=== PATIENT | male | born 1930 | race Caucasian/White ===

== ENCOUNTER 2017-10-12 14:33 | Inpatient (IN) ==
[2017-10-12] MEDS ORDERED: Sod Chloride 0.9% Inj 1,000 ML IV.SIG ONE ×2 (15:14→17:57)
[2017-10-12 15:40] LABS: Baso # (Auto) 0.1 th/mm3 (0.0-0.2); Baso % (Auto) 1.1 % (0.0-2.0); Eos % (Auto) 0.6 % (0.0-4.0); Hematocrit 36.5 % (39.0-51.0); Hemoglobin 12.1 gm/dL (13.0-17.0); Lymph # (Auto) 0.8 th/mm3 (1.0-4.8); Lymph % (Auto) 10.7 % (9.0-44.0); Mean Corpuscular HGB Conc 33.2 % (32.0-36.0); Mean Corpuscular Hemoglobin 30.2 pg (27.0-34.0); Mean Corpuscular Volume 90.9 fL (80.0-100.0); Mean Platelet Volume 10.5 fL (7.0-11.0); Mono # (Auto) 0.3 th/mm3 (0.0-0.9); Mono % (Auto) 4.4 % (0.0-8.0); Neut # (Auto) 6.3 th/mm3 (1.8-7.7); Neut % (Auto) 83.2 % (16.0-70.0); Platelet Count 112 th/mm3 (150-450); Red Blood Count 4.02 mil/mm3 (4.50-5.90); Red Cell Distribution Width 15.2 % (11.6-17.2); White Blood Count 7.5 th/mm3 (4.0-11.0)
[2017-10-12 15:44] LABS: Chloride 103 meq/L (98-107); Sodium 137 meq/L (136-145)
[2017-10-12 15:48] LABS: Albumin 2.9 g/dL (3.4-5.0); Anion Gap 9 meq/L (5-15); Blood Urea Nitrogen 22 mg/dL (7-18); Carbon Dioxide 25.4 meq/L (21.0-32.0); Glucose,Random 186 mg/dL (74-106)
[2017-10-12 15:49] LABS: Activated Partial Thrombo Time 27.6 sec (24.3-30.1); INR 1.4 Ratio; Prothrombin Time 14.5 sec (9.8-11.6)
--- NOTE | 2017-10-12 15:49 | ED ---
HPI General Chief complaint: Altered Mental Status Stated complaint: stroke like symptoms Time Seen by Provider: 10/12/17 15:11 History of Present Illness HPI narrative: 87-year-old male history of A. fib, hypertension here for evaluation of status for the last 3 days. at the bedside states he has not been acting himself recently, has generalized weakness, unable to get out or into the wheelchair as usual, he has been feeling warm to touch but she did not check his temperature, no nausea or vomiting, no focal deficits. He has history of stroke in the past and uses wheelchair to ambulate. Related Data Home Medications Medication Instructions Recorded Confirmed Calcium Citrate + D 1 tab PO DAILY 10/12/17 10/12/17 cholecalciferol (vitamin D3) 5,000 unit PO DAILY 10/12/17 10/12/17 [Vitamin D3] docusate sodium [Colace] 100 mg PO DAILY 10/12/17 10/12/17 doxazosin 2 mg PO DAILY 10/12/17 10/12/17 ferrous sulfate 325 mg PO DAILY 10/12/17 10/12/17 furosemide 1 - 2 tab PO DAILY 10/12/17 10/12/17 gabapentin 300 mg PO BID 10/12/17 10/12/17 ibuprofen 200 mg PO Q4-6H PRN 10/12/17 10/12/17 pantoprazole 40 mg PO BID 10/12/17 10/12/17 potassium bicarb-citric acid 25 meq PO DAILY 10/12/17 10/12/17 [Klor-Con/EF] thyroid (pork) [[place] Thyroid] 120 mg PO DAILY 10/12/17 10/12/17 warfarin 4 mg PO DAILY 10/12/17 10/12/17 Allergies Allergy/AdvReac Type Severity Reaction Status Date / Time metronidazole Allergy Mild Rash Verified 10/12/17 21:38 Review of Systems ROS: all other systems reviewed are negative [facility] Medical History Medical History CVA (cerebral vascular accident) (Acute) DVT (deep venous thrombosis) (Acute) Gastro-esophageal reflux (Acute) History of radiation therapy (Acute) Prostate cancer (Acute) Pulmonary emboli (Acute) Skin cancer (Acute) Surgical History Surgical History History of right hip replacement (Acute) Social History Social History Substance History: No History of Abuse Second Hand Smoke Exposure: No Smoking Status: Never smoker How Often Do You Have a Drink Containing Alcohol: Never Recent Travel in [facility] within the Last 8 Weeks: No Recent Out of Country Travel within the Last 8 Weeks: No Immunization History Tetanus Immunization: <5 Years Hx Influenza Vaccine This Season: No Exam Narrative Exam Narrative: GENERAL: Alert oriented 3 no acute distress. SKIN: Focused skin assessment warm/dry. HEAD: Atraumatic. Normocephalic. EYES: Pupils equal and round. No scleral icterus. No injection or drainage. ENT: No nasal bleeding or discharge. Mucous membranes pink and moist. NECK: Trachea midline. No JVD. CARDIOVASCULAR: Regular rate and rhythm. No murmur appreciated. RESPIRATORY: No accessory muscle use. Clear to auscultation. Breath sounds equal bilaterally. GASTROINTESTINAL: Abdomen soft, non-tender, nondistended. Hepatic and splenic margins not palpable. MUSCULOSKELETAL: No obvious deformities. No clubbing. No cyanosis. No edema. NEUROLOGICAL: Awake and alert. No obvious cranial nerve deficits. Motor grossly within normal limits. Normal speech. PSYCHIATRIC: Appropriate mood and affect; insight and judgment normal. Course Initial Documented Vital Signs Temperature 101.4 F H 10/12/17 14:37 Pulse Rate 106 H 10/12/17 14:37 Blood Pressure 142/82 H 10/12/17 14:37 Pulse Oximetry 94 L 10/12/17 14:37 Last Documented Vital Signs Temperature 98.6 F 10/14/17 00:00 Pulse Rate 90 10/14/17 06:00 Respiratory Rate 17 10/14/17 06:00 Blood Pressure 139/88 10/14/17 06:00 Pulse Oximetry 95 10/14/17 06:00 Medical Decision Making [facility] Narrative Medical decision making narrative: 87-year-old male here for evaluation altered mental status. When arrived at the ER, patient was tachycardic,mild temperature. Urine is positive for a urine infection, low platelets. Lactic acid is 2. I believe the patient has urosepsis with concern for early DIC given the low platelets. Patient received 2L IV fluids here in the ER and Zosyn. Patient will be admitted to ICU for further management. I spoke with PA of Dr. palacios who accepted the patient. Lab Data Result diagrams: 10/13/17 03:55 10/13/17 03:55 Lab Results 10/12/17 10/12/17 10/12/17 Range/Units 15:15 15:15 15:15 CBC w Diff Slide review pending WBC 7.5 (4.0-11.0) th/mm3 RBC 4.02 L (4.50-5.90) mil/mm3 Hgb 12.1 L (13.0-17.0) gm/dL Hct 36.5 L (39.0-51.0) % MCV 90.9 (80.0-100.0) fL MCH 30.2 (27.0-34.0) pg MCHC 33.2 (32.0-36.0) % RDW 15.2 (11.6-17.2) % Plt Count 112 L (150-450) th/mm3 MPV 10.5 (7.0-11.0) fL Neut % (Auto) 83.2 H (16.0-70.0) % Lymph % (Auto) 10.7 (9.0-44.0) % [place] % (Auto) 4.4 (0.0-8.0) % Eos % (Auto) 0.6 (0.0-4.0) % Baso % (Auto) 1.1 (0.0-2.0) % Neut # (Auto) 6.3 (1.8-7.7) th/mm3 Lymph # (Auto) 0.8 L (1.0-4.8) th/mm3 [place] # (Auto) 0.3 (0.0-0.9) th/mm3 Eos # (Auto) 0.0 (0.0-0.4) th/mm3 Baso # (Auto) 0.1 (0.0-0.2) th/mm3 WBC Differential . Diff Scan Auto diff confirmed Differential Comment . Platelet Estimate Low L (Normal) Platelet Morphology Normal (Normal) RBC Morphology Normal (Normal) PT 14.5 H (9.8-11.6) sec INR 1.4 Ratio APTT 27.6 (24.3-30.1) sec Sodium 137 (136-145) meq/L Potassium 4.0 (3.5-5.1) meq/L Chloride 103 (98-107) meq/L Carbon Dioxide 25.4 (21.0-32.0) meq/L Anion Gap 9 (5-15) meq/L BUN 22 H (7-18) mg/dL Creatinine 1.20 (0.60-1.30) mg/dL Estimated GFR 57 L (>89) mL/min Random Glucose 186 H (74-106) mg/dL Lactic Acid (0.4-2.0) mmol/L Calcium 8.0 L (8.5-10.1) mg/dL Total Bilirubin 1.5 H (0.2-1.0) mg/dL AST 19 (15-37) U/L ALT 20 (12-78) U/L Alkaline Phosphatase 52 (45-117) U/L Ammonia (11-32) mcmol/L Total Creatine Kinase 85 (39-308) U/L Troponin I 0.05 (0.02-0.05) ng/mL Total Protein 6.9 (6.4-8.2) g/dL Albumin 2.9 L (3.4-5.0) g/dL TSH 0.034 L (0.358-3.740) uIU/mL Urine Color (Yellw/Straw) Urine Clarity (Clear) Urine pH (5.0-8.5) Ur Specific [place] (1.002-1.035) Urine Protein (Neg-Trace) mg/dL Urine Glucose (UA) (Negative) mg/dL Urine Ketones (Negative) mg/dL Urine Occult Blood (Negative) Urine Nitrate (Negative) Urine Bilirubin (Negative) Urine Urobilinogen (Less than 2) mg/dL Ur Leukocyte Esterase (Negative) Urine RBC (0-3) /hpf Urine WBC (0-5) /hpf Urine Bacteria (None) /hpf Micro UA Comment Urine Culture Comments Nasal Screen MRSA (PCR) (Negative) 10/12/17 10/12/17 10/12/17 Range/Units 15:50 15:50 16:15 CBC w Diff WBC (4.0-11.0) th/mm3 RBC (4.50-5.90) mil/mm3 Hgb (13.0-17.0) gm/dL Hct (39.0-51.0) % MCV (80.0-100.0) fL MCH (27.0-34.0) pg MCHC (32.0-36.0) % RDW (11.6-17.2) % Plt Count (150-450) th/mm3 MPV (7.0-11.0) fL Neut % (Auto) (16.0-70.0) % Lymph % (Auto) (9.0-44.0) % [place] % (Auto) (0.0-8.0) % Eos % (Auto) (0.0-4.0) % Baso % (Auto) (0.0-2.0) % Neut # (Auto) (1.8-7.7) th/mm3 Lymph # (Auto) (1.0-4.8) th/mm3 [place] # (Auto) (0.0-0.9) th/mm3 Eos # (Auto) (0.0-0.4) th/mm3 Baso # (Auto) (0.0-0.2) th/mm3 WBC Differential Diff Scan Differential Comment Platelet Estimate (Normal) Platelet Morphology (Normal) RBC Morphology (Normal) PT (9.8-11.6) sec INR Ratio APTT (24.3-30.1) sec Sodium (136-145) meq/L Potassium (3.5-5.1) meq/L Chloride (98-107) meq/L Carbon Dioxide (21.0-32.0) meq/L Anion Gap (5-15) meq/L BUN (7-18) mg/dL Creatinine (0.60-1.30) mg/dL Estimated GFR (>89) mL/min Random Glucose (74-106) mg/dL Lactic Acid 2.0 (0.4-2.0) mmol/L Calcium (8.5-10.1) mg/dL Total Bilirubin (0.2-1.0) mg/dL AST (15-37) U/L ALT (12-78) U/L Alkaline Phosphatase (45-117) U/L Ammonia 34 H (11-32) mcmol/L Total Creatine Kinase (39-308) U/L Troponin I (0.02-0.05) ng/mL Total Protein (6.4-8.2) g/dL Albumin (3.4-5.0) g/dL TSH (0.358-3.740) uIU/mL Urine Color Yellow (Yellw/Straw) Urine Clarity Turbid H (Clear) Urine pH 7.0 (5.0-8.5) Ur Specific [place] 1.015 (1.002-1.035) Urine Protein 30 H (Neg-Trace) mg/dL Urine Glucose (UA) Negative (Negative) mg/dL Urine Ketones Negative (Negative) mg/dL Urine Occult Blood Moderate H (Negative) Urine Nitrate Positive H (Negative) Urine Bilirubin Negative (Negative) Urine Urobilinogen 1.0 (Less than 2) mg/dL Ur Leukocyte Esterase Large H (Negative) Urine RBC 0-3 (0-3) /hpf Urine WBC Innumerable H (0-5) /hpf Urine Bacteria Many H (None) /hpf Micro UA Comment Culture indicated Urine Culture Comments Culture indicated Nasal Screen MRSA (PCR) (Negative) 10/13/17 10/13/17 10/13/17 Range/Units 03:55 03:55 09:20 CBC w Diff Auto diff final WBC 7.1 (4.0-11.0) th/mm3 RBC 4.04 L (4.50-5.90) mil/mm3 Hgb 12.5 L (13.0-17.0) gm/dL Hct 37.6 L (39.0-51.0) % MCV 93.0 (80.0-100.0) fL MCH 31.0 (27.0-34.0) pg MCHC 33.4 (32.0-36.0) % RDW 15.4 (11.6-17.2) % Plt Count 97 L (150-450) th/mm3 MPV 9.8 (7.0-11.0) fL Neut % (Auto) 65.4 (16.0-70.0) % Lymph % (Auto) 24.8 (9.0-44.0) % [place] % (Auto) 4.7 (0.0-8.0) % Eos % (Auto) 2.6 (0.0-4.0) % Baso % (Auto) 2.5 H (0.0-2.0) % Neut # (Auto) 4.7 (1.8-7.7) th/mm3 Lymph # (Auto) 1.7 (1.0-4.8) th/mm3 [place] # (Auto) 0.3 (0.0-0.9) th/mm3 Eos # (Auto) 0.2 (0.0-0.4) th/mm3 Baso # (Auto) 0.2 (0.0-0.2) th/mm3 WBC Differential . Diff Scan Differential Comment . Platelet Estimate (Normal) Platelet Morphology (Normal) RBC Morphology (Normal) PT (9.8-11.6) sec INR Ratio APTT (24.3-30.1) sec Sodium 139 (136-145) meq/L Potassium 3.9 (3.5-5.1) meq/L Chloride 105 (98-107) meq/L Carbon Dioxide 27.7 (21.0-32.0) meq/L Anion Gap 6 (5-15) meq/L BUN 23 H (7-18) mg/dL Creatinine 1.20 (0.60-1.30) mg/dL Estimated GFR 57 L (>89) mL/min Random Glucose 123 H (74-106) mg/dL Lactic Acid (0.4-2.0) mmol/L Calcium 7.8 L (8.5-10.1) mg/dL Total Bilirubin 1.3 H (0.2-1.0) mg/dL AST 17 (15-37) U/L ALT 20 (12-78) U/L Alkaline Phosphatase 49 (45-117) U/L Ammonia (11-32) mcmol/L Total Creatine Kinase (39-308) U/L Troponin I (0.02-0.05) ng/mL Total Protein 6.7 (6.4-8.2) g/dL Albumin 2.9 L (3.4-5.0) g/dL TSH (0.358-3.740) uIU/mL Urine Color (Yellw/Straw) Urine Clarity (Clear) Urine pH (5.0-8.5) Ur Specific [place] (1.002-1.035) Urine Protein (Neg-Trace) mg/dL Urine Glucose (UA) (Negative) mg/dL Urine Ketones (Negative) mg/dL Urine Occult Blood (Negative) Urine Nitrate (Negative) Urine Bilirubin (Negative) Urine Urobilinogen (Less than 2) mg/dL Ur Leukocyte Esterase (Negative) Urine RBC (0-3) /hpf Urine WBC (0-5) /hpf Urine Bacteria (None) /hpf Micro UA Comment Urine Culture Comments Nasal Screen MRSA (PCR) Mrsa detected (Negative) Imaging Data Radiologist's impression: Chest X-Ray 10/12/17 15:14 CONCLUSION: No consolidation or effusion. No pneumothorax. Discharge Plan Discharge Disposition Patient Disposition: 30 Still Patient Discharge Condition Condition: Stable Discharge Details Diagnosis: Altered mental status, UTI (urinary tract infection) Physicians Team ED Provider: Leonel Terrell Primary Care Provider: Romulo Ge Attending Provider: Romulo Ge Other Providers: Dheeraj Loomis Discharge Interventions Interventions: ED Discharge Assessment Last Done: 10/13/17 07:32 Status ED Status: Left Department Discharge Information Discharge Date/Time: 10/13/17 07:50
[2017-10-12 15:51] LABS: Alanine Aminotransferase 20 U/L (12-78); Aspartate Aminotransferase 19 U/L (15-37); Glomerular Filtration Rate 57 mL/min (>89)
[2017-10-12 15:52] LABS: Total Protein 6.9 g/dL (6.4-8.2)
[2017-10-12 15:54] LABS: Alkaline Phosphatase 52 U/L (45-117)
[2017-10-12 15:56] LABS: Troponin I 0.05 ng/mL (0.02-0.05)
[2017-10-12 16:02] LABS: Thyroid Stimulating Hormone 0.034 uIU/mL (0.358-3.740)
[2017-10-12 16:04] LABS: Creatine Kinase 85 U/L (39-308)
[2017-10-12 16:07] LABS: Platelet Morphology Normal (Normal); RBC Morphology Normal (Normal)
[2017-10-12 16:23] LABS: Bilirubin,Urine Negative (Negative); Clarity,Urine Turbid (Clear); Color,Urine Yellow (Yellw/Straw); Glucose,Urine (UA) Negative (Negative); Leukocyte Esterase,Urine Large (Negative); Nitrite,Urine Positive (Negative); Specific Gravity,Urine 1.015 (1.002-1.035)
[2017-10-12 16:30] LABS: Bacteria,Urine Many /hpf; RBC,Urine 0-3 /hpf (0-3); WBC,Urine Innumerable /hpf (0-5)
--- NOTE | 2017-10-12 16:33 | XR ---
EXAM DATE: 10/12/2017 3:53 PM EDT AGE/SEX: 87 years / Male INDICATIONS: Cough. CLINICAL DATA: This is the patient's initial encounter. Patient reports that signs and symptoms have been present for 2 days and indicates a pain score of Nonresponsive. MEDICAL/SURGICAL HISTORY: Non-responsive. Non-responsive. COMPARISON: [facility] – [place], 06/10/[place]. . FINDINGS: There is scattered parenchymal scarring in the lungs. No effusion or pneumothorax. Tortuous aorta. He art size mildly enlarged. No pneumothorax. CONCLUSION: No consolidation or effusion. No pneumothorax. Electronically signed by: Yariel Barlow MD 10/12/2017 4:31 PM EDT
[2017-10-12] MEDS ORDERED: Piperacil/Tazo 3.375 GM Premix 50 ML IV.SIG ONE (16:43)
[2017-10-12] MEDS ORDERED: Acetaminophen 500 MG Tablet PO STA (16:44)
[2017-10-12] MEDS ORDERED: Enoxaparin Inj 40 MG/0.4 ML Syringe SQ SCH (18:00)
[2017-10-12] MEDS: Temazepam 15 MG Capsule PO PRN ×2 (23:45→23:47)
[2017-10-13] MEDS ORDERED: Chlorhexidine Gluconate 2% 1 Pack (2 Cloths) TOPICAL PRN (04:00)
[2017-10-13 04:06] LABS: Baso # (Auto) 0.2 th/mm3 (0.0-0.2); Baso % (Auto) 2.5 % (0.0-2.0); Eos # (Auto) 0.2 th/mm3 (0.0-0.4); Eos % (Auto) 2.6 % (0.0-4.0); Hematocrit 37.6 % (39.0-51.0); Hemoglobin 12.5 gm/dL (13.0-17.0); Lymph # (Auto) 1.7 th/mm3 (1.0-4.8); Lymph % (Auto) 24.8 % (9.0-44.0); Mean Corpuscular HGB Conc 33.4 % (32.0-36.0); Mean Platelet Volume 9.8 fL (7.0-11.0); Mono # (Auto) 0.3 th/mm3 (0.0-0.9); Mono % (Auto) 4.7 % (0.0-8.0); Neut # (Auto) 4.7 th/mm3 (1.8-7.7); Neut % (Auto) 65.4 % (16.0-70.0); Platelet Count 97 th/mm3 (150-450); Red Blood Count 4.04 mil/mm3 (4.50-5.90); Red Cell Distribution Width 15.4 % (11.6-17.2); White Blood Count 7.1 th/mm3 (4.0-11.0)
[2017-10-13 04:09] LABS: Chloride 105 meq/L (98-107); Potassium 3.9 meq/L (3.5-5.1); Sodium 139 meq/L (136-145)
[2017-10-13 04:12] LABS: Albumin 2.9 g/dL (3.4-5.0); Anion Gap 6 meq/L (5-15); Blood Urea Nitrogen 23 mg/dL (7-18); Calcium 7.8 mg/dL (8.5-10.1); Carbon Dioxide 27.7 meq/L (21.0-32.0); Glucose,Random 123 mg/dL (74-106)
[2017-10-13 04:15] LABS: Alanine Aminotransferase 20 U/L (12-78); Aspartate Aminotransferase 17 U/L (15-37)
[2017-10-13 04:16] LABS: Glomerular Filtration Rate 57 mL/min (>89)
[2017-10-13 04:17] LABS: Total Protein 6.7 g/dL (6.4-8.2)
[2017-10-13 04:18] LABS: Alkaline Phosphatase 49 U/L (45-117)
[2017-10-13] MEDS: Piperacil/Tazo 3.375 GM Premix 50 ML IV.SIG SCH ×2 (05:45→17:52)
--- NOTE | 2017-10-13 07:41 | MB ---
cc: Jeannie Gannon MD DATE: 10/13/2017 REASON FOR CONSULTATION: ICU management. REFERRING PHYSICIAN: Dr. Ge HISTORY OF PRESENT ILLNESS: The patient is an 87-year-old male with a past medical history of hypertension, atrial fibrillation, CVA, prostate cancer, history of pulmonary embolism, who presented to [facility] ED with his for generalized weakness. Unable to get out of his wheelchair as usual. In addition, the patient had a subjective fever. Most of the history was obtained from reviewing the medical records. The patient is a poor historian and he answers no to every question asked. He denies any chest pain, shortness of breath, cough or any constitutional symptoms. In addition, he denies any nausea, vomiting or abdominal pain. On arrival to the ED, he had a temperature of 101.4 and his laboratory data showed a creatinine of 1.2 and urinalysis was grossly positive for nitrate, leukocyte esterase, innumerable WBC. In the ED, the patient was given Zosyn and 2 liter boluses of normal saline. When seen, he is awake, alert, lying in bed, in no acute respiratory distress. The patient is on room air oxygen. His current blood pressure is 144/81 with a pulse of 92 and saturation 96% on room air. PAST MEDICAL HISTORY: Significant for CVA, GERD, prostate cancer, skin cancer, thyroid disease, history of pulmonary embolus and deep venous thrombosis. PAST SURGICAL HISTORY: Previous right hip replacement. SOCIAL HISTORY: Nonsmoker, nondrinker. ALLERGIES: FLAGYL. FAMILY HISTORY: Noncontributory to present illness. MEDICATIONS AT HOME: Include: 1. Coumadin. 2. [place] Thyroid. 3. Doxazosin. 4. Gabapentin. 5. Lasix. 6. Ferrous sulfate. 8. Protonix. 9. Calcium citrate with vitamin D. REVIEW OF SYSTEMS: As per HPI. The rest of the review of systems is limited as the patient is a poor historian. PHYSICAL EXAM: An 87-year-old male lying in bed, in no acute respiratory distress. VITAL SIGNS: Temperature 98.3, T-max 101.4, pulse of 88, blood pressure 144/81, saturation 96% on room air. HEENT: Atraumatic, normocephalic. Pupils are equal, round, reactive to light and accommodation. Extraocular muscles intact. Conjunctivae pink. Nonicteric sclerae. Oral mucosa within normal. NECK: Supple. No JVD, adenopathy or thyromegaly. Trachea in the midline. CARDIOVASCULAR: Regular rate and rhythm. Normal S1, S2. No murmurs, rubs or gallops. PULMONARY: Bilateral equal air entry. No rales or wheezing. ABDOMEN: Soft, nontender, no distention, positive bowel sounds. EXTREMITIES: No cyanosis, clubbing or edema. NEUROLOGIC: No focal sensory deficit. LABORATORY DATA: WBC 7.1, hemoglobin 12.5, hematocrit 37, platelet count of 97. Sodium 139, potassium 3.9, chloride 105, CO2 27, BUN 23, creatinine 1.2, glucose of 123. Urinalysis positive for nitrate, large leukocyte esterase, innumerable WBC. INR 1.4. PT 14.5, PTT 27.6. EKG showed atrial fibrillation with a rate of 105 beats per minute. IMPRESSION: 1. Urinary tract infection. 2. Mild acute kidney injury. 3. Atrial fibrillation. 4. Hypertension. 5. Anemia and thrombocytopenia. 6. History of cerebrovascular accident. 7. History of thyroid disease. 8. History of prostate cancer. 9. History of pulmonary embolism and deep venous thrombosis. RECOMMENDATIONS: 1. Monitor neuro status closely and avoid any sedatives. 2. Oxygen p.r.n. to maintain sats above 92%. 3. Bronchodilators on a p.r.n. basis. 4. Monitor heart rate and blood pressure closely and maintain MAP greater than 65 mmHg. The patient was given 2 liters boluses of normal saline in the ED. His lactic acid level measured at 2.0. 5. Monitor renal function, I's and O's and avoid nephrotoxins. Electrolyte replacement per protocol. 6. The patient was started on p.o. cardiac diet and is on Protonix 40 mg b.i.d. for gastrointestinal prophylaxis an underlying history of gastroesophageal reflux disease. 7. Continue with antibiotics. He was started on Zosyn. Monitor for signs of infection, which include fever and WBC. Followup on blood and urine culture. 8. Monitor CBC and coags as the patient is on Coumadin with an INR of 1.4 on arrival. 9. Continue with ferrous sulfate 325 mg daily. 10. Sliding scale insulin if needed for glycemic control, GI and deep venous thrombosis prophylaxis per primary team. 11. The patient appears hemodynamically stable, normotensive and on room air oxygen. We will sign off. Please call with any questions. MD ANTWON Ely , 07:17 AM , 07:27 AM
[2017-10-13] MEDS ORDERED: Thyroid 60 MG Tablet PO SCH (09:00)
[2017-10-13] MEDS: Gabapentin 300 MG Capsule PO SCH ×2 (09:56→20:15)
[2017-10-13] MEDS: Calcium/Vitamin D 250/125 MG Tablet PO SCH (09:57)
[2017-10-13] MEDS: Ferrous Sulfate 325 MG Tablet PO SCH (09:57)
[2017-10-13] MEDS: Docusate Sodium 100 MG Capsule PO SCH (10:02)
[2017-10-13] MEDS: Potassium Bicarbonate 25 MEQ Effervescent Tablet PO SCH (10:03)
[2017-10-13] MEDS ORDERED: Thyroid 15 MG Tablet PO ONE (10:15)
[2017-10-13] MEDS: Chlorhexidine Gluconate 2% 1 Pack (2 Cloths) TOPICAL SCH (20:16)
--- NOTE | 2017-10-13 22:38 | ECG ---
Date Performed: 10/12/2017 Time Performed: 14:44:54 PTAGE: 87 years EKG: ATRIAL FIBRILLATION WITH RAPID VENTRICULAR RESPONSE RIGHT BUNDLE BRANCH BLOCK LEFT ANTERIOR FASCICULAR BLOCK POSSIBLE ANTERIOR MYOCARDIAL INFARCTION ABNORMAL ECG PREVIOUS TRACING : 06/10/2015 18.56 Compared to previous tracing, ATRIAL FIBRILLATION IS NEW DOCTOR: Shad Jara Interpretating Date/Time 10/13/2017 22:37:25
[2017-10-14] MEDS: Chlorhexidine Gluconate 2% 1 Pack (2 Cloths) TOPICAL SCH (06:19)
[2017-10-14] MEDS: Piperacil/Tazo 3.375 GM Premix 50 ML IV.SIG SCH ×2 (06:24→17:45)
[2017-10-14] MEDS: Thyroid 60 MG Tablet PO SCH (08:27)
[2017-10-14] MEDS: Docusate Sodium 100 MG Capsule PO SCH (08:27)
[2017-10-14] MEDS: Ferrous Sulfate 325 MG Tablet PO SCH (08:28)
[2017-10-14] MEDS: Gabapentin 300 MG Capsule PO SCH ×2 (08:28→21:05)
[2017-10-14] MEDS: Calcium/Vitamin D 250/125 MG Tablet PO SCH (08:28)
[2017-10-14] MEDS: Potassium Bicarbonate 25 MEQ Effervescent Tablet PO SCH (08:29)
--- NOTE | 2017-10-14 09:45 | P.HPFP ---
History of Present Illness Service: family medicine Primary Care Physician: Romulo Ge DO History of Present Illness: Late entry, seen on 10/13/17 The patient is an 87-year-old male with a past medical history of hypertension, atrial fibrillation, CVA, prostate cancer, history of pulmonary embolism, came to ED, with temperature of 101.4 and his laboratory data showed a creatinine of 1.2 and urinalysis was grossly positive for nitrate, leukocyte esterase, innumerable WBC. In the ED, the patient was given Zosyn and 2 liter boluses of normal saline. - Diagnosis (1) UTI (urinary tract infection) (2) Sepsis (3) Afib (4) HTN (hypertension) (5) GERD (gastroesophageal reflux disease) Inpatient Certification: I certify that the inpatient services were ordered in accordance with Medicare regulations governing the order. This includes certification that hospital inpatient services are reasonable and necessary and in the case of services not specified as inpatient-only under 42 CFR 419.22(n), that they are appropriately provided as inpatient services in accordance to with the 2-midnight benchmark under 43 CFR 412.3(e) Estimated Total Length of Stay (Days): 3 Plans for Post Hospital Care: Not yet determined Review of Systems unobtainable due to mental status PMFSH - History History Provided By: Patient, Significant Other - Medical History Medical History: Medical History (Last Updated 10/12/17 @ 14:56 by Marivel Garnica RN) CVA (cerebral vascular accident) DVT (deep venous thrombosis) Gastro-esophageal reflux History of radiation therapy Prostate cancer Pulmonary emboli Skin cancer - Surgical History Surgical History: Surgical History (Last Updated 10/12/17 @ 14:57 by Marivel Garnica RN) History of right hip replacement - Tobacco History Second Hand Smoke Exposure: No Tobacco Use In Past 30 Days: No Smoking Status: Never smoker - Alcohol History How Often Do You Have a Drink Containing Alcohol: Never - Substance Use History Substance History: No History of Abuse - Travel History Recent Travel in the [place] Within the Last 8 Weeks: No Recent Travel Out of the Country Within the Last 8 Weeks: No - Immunization History Tetanus Immunization: <5 Years Hx Influenza Vaccine This Season: No Medications and Allergies Active Medications: Active Medications Calcium/Vitamin D (Oscal With D 250/125 Mg) 1 tab PO DAILY [facility] Last Admin: 10/14/17 08:28 Dose: 1 tab Chlorhexidine Gluconate (Chlorhexidine 2% Cloth) 3 pack TOPICAL DAILY@0400 [facility] Stop: 10/18/17 03:59 Last Admin: 10/14/17 06:19 Dose: 3 pack Chlorhexidine Gluconate (Chlorhexidine 2% Cloth) 3 pack TOPICAL DAILY@0400 PRN PRN Reason: Extra cloth needed Stop: 10/18/17 03:59 Docusate Sodium (Colace) 100 mg PO DAILY [facility] Last Admin: 10/14/17 08:27 Dose: 100 mg Doxazosin Mesylate (Cardura) 2 mg PO DAILY [facility] Last Admin: 10/14/17 08:28 Dose: 2 mg Ferrous Sulfate (Ferosul) 325 mg PO DAILY [facility] Last Admin: 10/14/17 08:28 Dose: 325 mg Gabapentin (Neurontin) 300 mg PO BID [facility] Last Admin: 10/14/17 08:28 Dose: 300 mg Piperacillin/Tazobactam/Dextrose (Zosyn 3.375 Gm Premix) 50 mls @ 100 mls/hr IV.SIG Q12H [facility] Last Admin: 10/14/17 06:24 Dose: 100 mls/hr Ibuprofen (Motrin) 200 mg PO Q4H PRN PRN Reason: PAIN SCALE 1 TO 10 Pantoprazole Sodium (Protonix) 40 mg PO BID [facility] Last Admin: 10/14/17 08:28 Dose: 40 mg Potassium Bicarbonate (Effer-K) 25 meq PO DAILY [facility] Last Admin: 10/14/17 08:29 Dose: 25 meq Sodium Chloride (Ns Flush) 2 ml IV.FLUSH BID [facility] Last Admin: 10/14/17 08:28 Dose: 2 ml Sodium Chloride (Ns Flush) 2 ml IV.FLUSH PRN PRN PRN Reason: FLUSH AFTER USING IV ACCESS Temazepam (Restoril) 15 mg PO HS PRN PRN Reason: INSOMNIA Last Admin: 10/12/17 23:47 Dose: 15 mg Thyroid (Sheffield Thyroid) 120 mg PO DAILY [facility] Last Admin: 10/14/17 08:27 Dose: 120 mg Vitamin D (Vitamin D3) 5,000 unit PO DAILY [facility] Last Admin: 10/14/17 08:30 Dose: 5,000 unit Warfarin Sodium (Coumadin) 4 mg PO DAILY@1600 [facility] Last Admin: 10/13/17 17:53 Dose: 4 mg Allergies Allergy/AdvReac Type Severity Reaction Status Date / Time metronidazole Allergy Mild Rash Verified 10/12/17 21:38 Home Medications Medication Instructions Recorded Confirmed Type Calcium Citrate + D 1 tab PO DAILY 10/12/17 10/12/17 History cholecalciferol (vitamin D3) 5,000 unit PO DAILY 10/12/17 10/12/17 History [Vitamin D3] docusate sodium [Colace] 100 mg PO DAILY 10/12/17 10/12/17 History doxazosin 2 mg PO DAILY 10/12/17 10/12/17 History ferrous sulfate 325 mg PO DAILY 10/12/17 10/12/17 History furosemide 1 - 2 tab PO DAILY 10/12/17 10/12/17 History gabapentin 300 mg PO BID 10/12/17 10/12/17 History ibuprofen 200 mg PO Q4-6H PRN 10/12/17 10/12/17 History pantoprazole 40 mg PO BID 10/12/17 10/12/17 History potassium bicarb-citric acid 25 meq PO DAILY 10/12/17 10/12/17 History [Klor-Con/EF] thyroid (pork) [She[place] Thyroid] 120 mg PO DAILY 10/12/17 10/12/17 History warfarin 4 mg PO DAILY 10/12/17 10/12/17 History Exam Vital signs: Vital Signs 10/13/17 10:00 10/13/17 11:00 10/13/17 12:00 Temperature 98.4 F Pulse Rate 106 H 110 H 90 Respiratory Rate 25 H 23 18 Blood Pressure Pulse Oximetry 97 94 L 95 10/13/17 13:00 10/13/17 13:58 10/13/17 14:00 Temperature Pulse Rate 104 H 96 H 96 H Respiratory Rate 22 30 H 29 H Blood Pressure 127/68 151/81 H 132/78 Pulse Oximetry 94 L 90 L 91 L 10/13/17 15:00 10/13/17 16:00 10/13/17 17:00 Temperature 98.4 F Pulse Rate 92 H 94 H 92 H Respiratory Rate 21 19 18 Blood Pressure 136/93 H 153/86 H Pulse Oximetry 95 93 L 91 L 10/13/17 17:19 10/13/17 18:00 10/13/17 19:17 Temperature Pulse Rate 106 H 114 H 106 H Respiratory Rate 23 28 H 21 Blood Pressure 153/98 H 145/80 H Pulse Oximetry 93 L 95 92 L 10/13/17 20:00 10/13/17 20:43 10/13/17 21:00 Temperature Pulse Rate 112 H 110 H Respiratory Rate 27 H 21 Blood Pressure 130/82 137/86 Pulse Oximetry 93 L 93 L 93 L 10/13/17 22:18 10/13/17 22:22 10/13/17 23:34 Temperature Pulse Rate 120 H 112 H 92 H Respiratory Rate 36 H 29 H 20 Blood Pressure 163/102 H 155/96 H 157/97 H Pulse Oximetry 94 L 94 L 96 10/14/17 00:00 10/14/17 01:00 10/14/17 02:07 Temperature 98.6 F Pulse Rate 98 H 92 H 90 Respiratory Rate 20 22 16 Blood Pressure 161/92 H 152/90 H 158/92 H Pulse Oximetry 95 96 96 10/14/17 03:24 10/14/17 04:00 10/14/17 05:00 Temperature Pulse Rate 94 H 92 H 96 H Respiratory Rate 17 16 17 Blood Pressure 146/88 H 151/89 H 155/88 H Pulse Oximetry 96 96 95 10/14/17 06:00 10/14/17 07:35 Temperature Pulse Rate 90 Respiratory Rate 17 Blood Pressure 139/88 Pulse Oximetry 95 94 L Intake & Output 10/13/17 10/14/17 10/14/17 18:59 06:59 18:59 Intake Total 560 / 560 100 / 100 Output Total 1350 / 1350 500 / 500 Balance -790 / -790 -400 / -400 Weight 105 kg 105.5 kg Intake: IV 100 / 100 Zosyn 3.375 GM Premix 50 ML @ 100 / 100 100 mls/hr IV.SIG Q12H [facility] Rx#: [id number] Oral 560 / 560 Output: Urine 1350 / 1350 500 / 500 Stool 0 / 0 Other: Date of Last Bowel Movement 10/13/17 10/12/17 Weight On Admission 105 kg - Constitutional no acute distress - Routine HEENT Exam ENT: Present: mucous membranes dry - Routine Neck Exam Present: supple - Routine Cardiovascular Exam Present: RRR, S1, S2 - Routine Abdominal Exam Present: soft, normoactive bowel sounds - Routine Extremities Exam Present: edema - Routine Neurological Exam Present: alert - Routine Psychiatric Exam Present: cooperative Results - Labs Result diagrams: 10/13/17 03:55 10/13/17 03:55 Abnormal lab results 10/12/17 Range/Units 16:15 Urine Clarity Turbid H (Clear) Urine Protein 30 H (Neg-Trace) mg/dL Urine Occult Blood Moderate H (Negative) Urine Nitrate Positive H (Negative) Ur Leukocyte Esterase Large H (Negative) Urine WBC Innumerable H (0-5) /hpf Urine Bacteria Many H (None) /hpf Urine 10/12/17 Range/Units 16:15 Urine Color Yellow (Yellw/Straw) Urine Clarity Turbid H (Clear) Urine pH 7.0 (5.0-8.5) Ur Specific [place] 1.015 (1.002-1.035) Urine Protein 30 H (Neg-Trace) mg/dL Urine Glucose (UA) Negative (Negative) mg/dL Caprini VTE Risk Assessment Caprini VTE Risk Assessment: Moderate/High Risk (score >= 2) (On coumadin) Caprini Risk Assessment Model: Point Value = 1 Point Value = 2 Point Value = 3 Point Value = 5 Age 41-60 Minor surgery BMI > 25 kg/m2 Swollen legs Varicose veins or History of unexplained or recurrent spontaneous Oral contraceptives or hormone replacement Sepsis (< 1 month) Serious lung disease, including pneumonia (< 1 month) Abnormal pulmonary function Acute myocardial infarction Congestive heart failure (< 1 month) History of inflammatory bowel disease Medical patient at bed rest Age 61-74 Arthroscopic surgery Major open surgery (> 45 min) Laparoscopic surgery (> 45 min) Malignancy Confined to bed (> 72 hours) Immobilizing plaster cast Central venous access Age >= 75 History of VTE Family history of VTE Factor V Leiden Prothrombin [id number] Lupus anticoagulant Anticardiolipin antibodies Elevated serum homocysteine Heparin-induced thrombocytopenia Other congenital or acquired thrombophilia Stroke (< 1 month) Elective arthroplasty Hip, pelvis, or leg fracture Acute spinal cord injury (< 1 month) Prophylaxis Regimen: Total Risk Factor Score Risk Level Prophylaxis Regimen 0-1 Low Early ambulation 2 Moderate Order ONE of the following: *Sequential Compression Device (SCD) *Heparin 5000 units SQ BID 3-4 Higher Order ONE of the following medications: *Heparin 5000 units SQ TID *Enoxaparin/Lovenox 40 mg SQ daily (WT < 150 kg, CrCl > 30 mL/min) *Enoxaparin/Lovenox 30 mg SQ daily (WT < 150 kg, CrCl > 10-29 mL/min) *Enoxaparin/Lovenox 30 mg SQ BID (WT < 150 kg, CrCl > 30 mL/min) AND/OR *Sequential Compression Device (SCD) 5 or more Highest Order ONE of the following medications: *Heparin 5000 units SQ TID (Preferred with Epidurals) *Enoxaparin/Lovenox 40 mg SQ daily (WT < 150 kg, CrCl > 30 mL/min) *Enoxaparin/Lovenox 30 mg SQ daily (WT < 150 kg, CrCl > 10-29 mL/min) *Enoxaparin/Lovenox 30 mg SQ BID (WT < 150 kg, CrCl > 30 mL/min) AND *Sequential Compression Device (SCD) Assessment and Plan - Assessment (1) UTI (urinary tract infection) Code(s): N39.0 - Urinary tract infection, site not specified Status: Acute Plan: Ecoli positive, started on Zosyn Sensitive to Zosyn will cont. (2) Sepsis Code(s): A41.9 - Sepsis, unspecified organism Status: Acute Plan: IVF, Zosyn (3) Afib Code(s): I48.91 - Unspecified atrial fibrillation Status: Acute Plan: Coumadin, rate controlled (4) HTN (hypertension) Code(s): I10 - Essential (primary) hypertension Status: Acute Plan: Cont home medications (5) GERD (gastroesophageal reflux disease) Code(s): K21.9 - Gastro-esophageal reflux disease without esophagitis Status: Acute Plan: Protonix - Assessment and Plan Old cva, Hospice consult, decision pending snf/ home with Hospice H&P: Quality - VTE Deep Vein Thrombosis/Pulmonary Embolism Present on Admission: No (1) UTI (urinary tract infection) Qualifiers: Urinary tract infection type: site unspecified Hematuria presence: without hematuria Qualified Code(s): N39.0 - Urinary tract infection, site not specified (2) Sepsis Qualifiers: Sepsis type: Escherichia coli Qualified Code(s): A41.51 - Sepsis due to Escherichia coli [E. coli]
[2017-10-14 11:18] LABS: Potassium 4.4 meq/L (3.5-5.1)
[2017-10-14 11:21] LABS: Calcium 7.9 mg/dL (8.5-10.1); Carbon Dioxide 25.9 meq/L (21.0-32.0); INR 1.4 Ratio; Prothrombin Time 13.9 sec (9.8-11.6)
--- NOTE | 2017-10-14 13:52 | P.DIET ---
Nutritional Evaluation Type of nutrition evaluation: initial Nutrition screening: Weight Loss > 10 lbs Subjective Subjective Comments: Pt receiving nursing care and at bedside. Pt's says pt is in a wheelchair at home and his wt has not been known to her; she thinks the pt has lost wt r/t his appetite has decreased recently. Pt's adds that his usual wt, in the past, was 235-lb. Objective - Diagnosis Urosepsis, early DIC - Objective Lesage body weight: 81 kg % IBW: 130 Body Weight Used for Calculations: IBW Energy Needs - Lower Range (kCal/kg): 25 Energy Needs - Upper Range (kCal/kg): 30 Lower Limit kCal/kg (kCals): 2,025 Upper Limit kCal/kg (kCals): 2,430 Lower Limit Protein Factor (Grams per Kg): 1.1 Upper Limit Protein Factor (Grams per Kg): 1.4 Lower Protein Needs (Protein): 89 Upper Protein Needs (Protein): 113 Dietitian Reviewed in Medical Record: Current diet, Curent medications, Intake & Output, Labs, Medical history Diet Order: Cardiac Oral Diet Intake Amount: Fair 50-75% Objective Comments: PMH: CVA, DVT, GERD, h/o radiation therapy, prostate cancer, pulmonary emboli, skin cancer Glucose 160; ammonia 34 LBM 10/12, +UOP 1850ml Assessment Assessment: Pt is at nutritional risk r/t diagnosis and reported unintentional wt loss. Adequate po intake 50% or greater for meals recorded here. Assess need for a nutritional supplement as appropriate. Labs reviewed. Dietitian will follow. Recommendations: 1.Assess need for a nutritional supplement as appropriate 2.Dietitian will follow Dietitian to Monitor: Lab values, Intake & Output, Diet tolerance, Weight change , PO Intake, Medical course
[2017-10-15] MEDS: Chlorhexidine Gluconate 2% 1 Pack (2 Cloths) TOPICAL SCH (03:29)
[2017-10-15] MEDS: Piperacil/Tazo 3.375 GM Premix 50 ML IV.SIG SCH ×2 (05:54→17:10)
[2017-10-15] MEDS: Thyroid 60 MG Tablet PO SCH (08:00)
[2017-10-15] MEDS: Ferrous Sulfate 325 MG Tablet PO SCH (08:03)
[2017-10-15] MEDS: Calcium/Vitamin D 250/125 MG Tablet PO SCH (08:04)
[2017-10-15] MEDS: Gabapentin 300 MG Capsule PO SCH ×2 (08:04→21:16)
[2017-10-15] MEDS: Docusate Sodium 100 MG Capsule PO SCH (08:05)
[2017-10-15] MEDS: Potassium Bicarbonate 25 MEQ Effervescent Tablet PO SCH (08:07)
--- NOTE | 2017-10-15 10:54 | P.PNFP ---
Subjective Interval history: Resting in bed Denies CP, SOB Uneventful night reported Results - Labs Result diagrams: 10/13/17 03:55 10/14/17 10:30 Abnormal lab results 10/14/17 10/14/17 Range/Units 10:30 10:30 PT 13.9 H (9.8-11.6) sec Sodium 135 L (136-145) meq/L Estimated GFR 63 L (>89) mL/min Random Glucose 160 H (74-106) mg/dL Calcium 7.9 L (8.5-10.1) mg/dL BMP 10/14/17 10:30 Sodium 135 L Potassium 4.4 Chloride 102 Carbon Dioxide 25.9 BUN 18 Creatinine 1.10 Calcium 7.9 L Physical Exam Vital signs: Vital Signs 10/14/17 12:31 10/14/17 16:00 10/14/17 20:00 Temperature 98.4 F 97.3 F L Pulse Rate 89 80 Respiratory Rate 18 16 20 Blood Pressure 132/82 141/90 H 155/88 H Pulse Oximetry 98 97 95 10/14/17 20:05 10/15/17 00:00 10/15/17 08:00 Temperature 99.4 F 97.5 F L Pulse Rate 59 L 69 Respiratory Rate 20 20 Blood Pressure 106/80 143/84 H Pulse Oximetry 96 95 95 10/15/17 09:37 Temperature Pulse Rate Respiratory Rate Blood Pressure Pulse Oximetry 96 Intake & Output 10/14/17 10/15/17 10/15/17 18:59 06:59 18:59 Intake Total 770 / 770 220 / 220 Balance 770 / 770 220 / 220 Intake: IV 50 / 50 100 / 100 Zosyn 3.375 GM Premix 50 ML @ 50 / 50 100 / 100 100 mls/hr IV.SIG Q12H [facility] Rx#: [id number] Oral 720 / 720 120 / 120 Other: # Voids 4 # Incontinent Voids 3 Date of Last Bowel Movement 10/14/17 10/14/17 10/14/17 # Bowel Movements 1 - Constitutional no acute distress - Routine HEENT Exam ENT: Present: mucous membranes moist - Routine Neck Exam Present: supple, full ROM - Routine Respiratory Exam Present: diminished air movement - Routine Cardiovascular Exam Present: S1, S2 - Routine Abdominal Exam Present: soft, normoactive bowel sounds - Routine Neurological Exam Present: alert - Detailed Neurological Exam: Coma Scale Eye Opening: Spontaneous - Routine Psychiatric Exam Present: cooperative Assessment and Plan - Assessment (1) UTI (urinary tract infection) Code(s): N39.0 - Urinary tract infection, site not specified Status: Acute Plan: Ecoli positive, started on Zosyn Sensitive to Zosyn will cont. (2) Sepsis Code(s): A41.9 - Sepsis, unspecified organism Status: Acute Plan: IVF, Zosyn (3) Afib Code(s): I48.91 - Unspecified atrial fibrillation Status: Acute Plan: Coumadin, rate controlled (4) HTN (hypertension) Code(s): I10 - Essential (primary) hypertension Status: Acute Plan: Cont home medications (5) GERD (gastroesophageal reflux disease) Code(s): K21.9 - Gastro-esophageal reflux disease without esophagitis Status: Acute Plan: Protonix - Assessment and Plan Old cva, Hospice consult, decision pending snf/ home with Hospice 10/15/17- Transferred to medical floor.Vss voices he is feeling better. Cont with Zosyn. Hospice pending decision. Inr 1.4 on $ mg of Coumadin .Plt 97, yesterday, will repeat labs. Cont to monitor.Pt eval and treat. (1) UTI (urinary tract infection) Qualifiers: Urinary tract infection type: site unspecified Hematuria presence: without hematuria Qualified Code(s): N39.0 - Urinary tract infection, site not specified (2) Sepsis Qualifiers: Sepsis type: Escherichia coli Qualified Code(s): A41.51 - Sepsis due to Escherichia coli [E. coli]
[2017-10-16] MEDS: Chlorhexidine Gluconate 2% 1 Pack (2 Cloths) TOPICAL SCH (04:07)
[2017-10-16] MEDS: Piperacil/Tazo 3.375 GM Premix 50 ML IV.SIG SCH ×2 (06:08→17:54)
[2017-10-16 07:51] LABS: Hematocrit 36.7 % (39.0-51.0); Hemoglobin 12.5 gm/dL (13.0-17.0); Mean Corpuscular HGB Conc 34.1 % (32.0-36.0); Mean Corpuscular Hemoglobin 30.9 pg (27.0-34.0); Mean Corpuscular Volume 90.7 fL (80.0-100.0); Platelet Count 96 th/mm3 (150-450); Red Blood Count 4.04 mil/mm3 (4.50-5.90); Red Cell Distribution Width 15.2 % (11.6-17.2); White Blood Count 7.6 th/mm3 (4.0-11.0)
[2017-10-16 07:57] LABS: INR 1.4 Ratio; Prothrombin Time 14.4 sec (9.8-11.6)
[2017-10-16] MEDS: Thyroid 60 MG Tablet PO SCH (09:22)
[2017-10-16] MEDS: Docusate Sodium 100 MG Capsule PO SCH (09:23)
[2017-10-16] MEDS: Ibuprofen 400 MG Tablet PO PRN (09:23)
[2017-10-16] MEDS: Potassium Bicarbonate 25 MEQ Effervescent Tablet PO SCH (09:24)
[2017-10-16] MEDS: Calcium/Vitamin D 250/125 MG Tablet PO SCH (09:24)
[2017-10-16] MEDS: Gabapentin 300 MG Capsule PO SCH ×2 (09:24→21:05)
[2017-10-16] MEDS: Ferrous Sulfate 325 MG Tablet PO SCH (09:24)
--- NOTE | 2017-10-16 12:01 | P.PNFP ---
Subjective Interval history: Family is not at bedside and patient is less alert this AM. When aroused, he is without complaints. No decision about Hospice. Results - Labs Result diagrams: 10/16/17 06:34 10/14/17 10:30 Abnormal lab results 10/16/17 10/16/17 Range/Units 06:34 06:34 RBC 4.04 L (4.50-5.90) mil/mm3 Hgb 12.5 L (13.0-17.0) gm/dL Hct 36.7 L (39.0-51.0) % Plt Count 96 L (150-450) th/mm3 PT 14.4 H (9.8-11.6) sec Short CBC 10/16/17 Range/Units 06:34 WBC 7.6 (4.0-11.0) th/mm3 Hgb 12.5 L (13.0-17.0) gm/dL Hct 36.7 L (39.0-51.0) % Plt Count 96 L (150-450) th/mm3 Physical Exam Vital signs: Vital Signs 10/15/17 12:00 10/15/17 16:00 10/15/17 20:00 Temperature 96.2 F L 99 F 97.7 F Pulse Rate 87 103 H Respiratory Rate 22 20 20 Blood Pressure 107/70 118/72 142/82 H Pulse Oximetry 93 L 94 L 96 10/15/17 20:30 10/16/17 00:00 10/16/17 08:00 Temperature 97.7 F 98.4 F Pulse Rate 98 H 87 Respiratory Rate 20 17 Blood Pressure 120/83 139/89 Pulse Oximetry 95 95 95 Intake & Output 10/15/17 10/16/17 10/16/17 18:59 06:59 18:59 Intake Total 890 / 890 170 / 170 Balance 890 / 890 170 / 170 Intake: IV 50 / 50 50 / 50 Zosyn 3.375 GM Premix 50 ML @ 50 / 50 50 / 50 100 mls/hr IV.SIG Q12H [facility] Rx#: [id number] Oral 840 / 840 120 / 120 Other: # Voids 7 5 Date of Last Bowel Movement 10/14/17 10/14/17 10/14/17 # Bowel Movements 0 - Constitutional no acute distress - Routine HEENT Exam Head: Present: normocephalic, atraumatic Eye: Present: normal accommodation ENT: Present: mucous membranes moist - Routine Neck Exam Present: supple - Routine Respiratory Exam Present: CTA bilaterally - Routine Cardiovascular Exam Present: S1, S2, irregularly irregular - Routine Abdominal Exam Present: soft, normoactive bowel sounds - Routine Extremities Exam Present: full ROM - Routine Skin Exam Present: intact - Routine Neurological Exam lethargic but arousable - Detailed Neurological Exam: Coma Scale Eye Opening: To sound Verbal Response: Words Assessment and Plan - Assessment (1) UTI (urinary tract infection) Code(s): N39.0 - Urinary tract infection, site not specified Status: Acute Plan: Ecoli positive, started on Zosyn Sensitive to Zosyn will cont. (2) Sepsis Code(s): A41.9 - Sepsis, unspecified organism Status: Acute Plan: IVF, Zosyn (3) Afib Code(s): I48.91 - Unspecified atrial fibrillation Status: Acute Plan: Coumadin, rate controlled (4) HTN (hypertension) Code(s): I10 - Essential (primary) hypertension Status: Acute Plan: Cont home medications. Controlled thus far. (5) GERD (gastroesophageal reflux disease) Code(s): K21.9 - Gastro-esophageal reflux disease without esophagitis Status: Acute Plan: Protonix and monitor for GI sx. - Assessment and Plan Old cva, Hospice consult, decision pending snf/ home with Hospice 10/15/17- Transferred to medical floor.Vss voices he is feeling better. Cont with Zosyn. Hospice pending decision. Inr 1.4 on $ mg of Coumadin .Plt 97, yesterday, will repeat labs. Cont to monitor.Pt eval and treat. 10/16/17 - The RN tells me the family has gone to [facility] to see if OK for him to got to when ready for D/C. No word about Hospice consult thus far. Will cont to monitor and support. (1) UTI (urinary tract infection) Qualifiers: Urinary tract infection type: site unspecified Hematuria presence: without hematuria Qualified Code(s): N39.0 - Urinary tract infection, site not specified (2) Sepsis Qualifiers: Sepsis type: Escherichia coli Qualified Code(s): A41.51 - Sepsis due to Escherichia coli [E. coli]
[2017-10-17] MEDS: Temazepam 15 MG Capsule PO PRN (01:34)
[2017-10-17] MEDS: Chlorhexidine Gluconate 2% 1 Pack (2 Cloths) TOPICAL SCH (05:34)
[2017-10-17] MEDS: Piperacil/Tazo 3.375 GM Premix 50 ML IV.SIG SCH ×2 (05:41→17:36)
[2017-10-17] MEDS: Thyroid 60 MG Tablet PO SCH (08:20)
[2017-10-17] MEDS: Gabapentin 300 MG Capsule PO SCH ×2 (08:20→20:40)
[2017-10-17] MEDS: Ibuprofen 400 MG Tablet PO PRN (08:20)
[2017-10-17] MEDS: Docusate Sodium 100 MG Capsule PO SCH (08:22)
[2017-10-17] MEDS: Ferrous Sulfate 325 MG Tablet PO SCH (08:22)
[2017-10-17] MEDS: Calcium/Vitamin D 250/125 MG Tablet PO SCH (08:22)
[2017-10-17] MEDS: Potassium Bicarbonate 25 MEQ Effervescent Tablet PO SCH (08:22)
--- NOTE | 2017-10-17 11:14 | P.PNFP ---
Subjective Interval history: He is more alert today on IV antibiotics for MRSA UTI. at bedside is considering placement at [facility]. I will consult case management coordinator to communicate and arrange transfer when medically cleared which will likely be in the next day or so. Results - Labs Result diagrams: 10/16/17 06:34 10/14/17 10:30 Physical Exam Vital signs: Vital Signs 10/16/17 12:00 10/16/17 16:00 10/16/17 17:20 Temperature 98.0 F 97.4 F L Pulse Rate 80 85 Respiratory Rate 17 17 20 Blood Pressure 132/86 144/94 H Pulse Oximetry 95 96 10/16/17 20:00 10/17/17 00:00 10/17/17 08:00 Temperature 96.5 F L 96.3 F L 96.5 F L Pulse Rate 87 96 H Respiratory Rate 20 18 20 Blood Pressure 148/87 H 137/84 158/95 H Pulse Oximetry 96 96 Intake & Output 10/16/17 10/17/17 10/17/17 18:59 06:59 18:59 Intake Total 50 / 50 290 / 290 Output Total 300 / 300 Balance -250 / -250 290 / 290 Weight 105 kg Intake: IV 50 / 50 50 / 50 Zosyn 3.375 GM Premix 50 ML @ 50 / 50 50 / 50 100 mls/hr IV.SIG Q12H [facility] Rx#: [id number] Oral 240 / 240 Output: Urine 300 / 300 Other: # Incontinent Voids 4 # Urine Diapers 1 Date of Last Bowel Movement 10/14/17 10/14/17 - Constitutional no acute distress - Routine HEENT Exam Head: Present: normocephalic, atraumatic Eye: Present: normal accommodation ENT: Present: mucous membranes moist - Routine Neck Exam Present: supple, full ROM - Routine Respiratory Exam Present: CTA bilaterally - Routine Cardiovascular Exam Present: S1, S2, irregularly irregular - Routine Abdominal Exam Present: soft, normoactive bowel sounds - Routine Skin Exam Present: intact - Routine Neurological Exam Present: alert, altered mental status more alert today but drowsy and drifts off easily - Detailed Neurological Exam: Coma Scale Eye Opening: To sound Verbal Response: Words Motor Response: Obey commands Jordon Coma Scale Total: 12 - Routine Psychiatric Exam Present: normal affect Assessment and Plan - Assessment (1) UTI (urinary tract infection) Code(s): N39.0 - Urinary tract infection, site not specified Status: Acute Plan: Ecoli positive, started on Zosyn Sensitive to Zosyn will cont. (2) Sepsis Code(s): A41.9 - Sepsis, unspecified organism Status: Acute Plan: IVF, Zosyn. Now afebrile and more alert. (3) Afib Code(s): I48.91 - Unspecified atrial fibrillation Status: Acute Plan: Coumadin, rate controlled (4) HTN (hypertension) Code(s): I10 - Essential (primary) hypertension Status: Acute Plan: Cont home medications. Controlled thus far. (5) GERD (gastroesophageal reflux disease) Code(s): K21.9 - Gastro-esophageal reflux disease without esophagitis Status: Acute Plan: Protonix and monitor for GI sx. - Assessment and Plan Old cva, Hospice consult, decision pending snf/ home with Hospice 10/15/17- Transferred to medical floor.Vss voices he is feeling better. Cont with Zosyn. Hospice pending decision. Inr 1.4 on $ mg of Coumadin .Plt 97, yesterday, will repeat labs. Cont to monitor.Pt eval and treat. 10/16/17 - The RN tells me the family has gone to [facility] to see if OK for him to got to when ready for D/C. No word about Hospice consult thus far. Will cont to monitor and support. 10/17/17 - Discussed plan with pt's and case management coordinator. Will consult case management coordinator for eval for transfer to [facility] when medically cleared for D/C. Cont IV Zosyn for now. (1) UTI (urinary tract infection) Qualifiers: Urinary tract infection type: site unspecified Hematuria presence: without hematuria Qualified Code(s): N39.0 - Urinary tract infection, site not specified (2) Sepsis Qualifiers: Sepsis type: Escherichia coli Qualified Code(s): A41.51 - Sepsis due to Escherichia coli [E. coli]
[2017-10-18] MEDS: Piperacil/Tazo 3.375 GM Premix 50 ML IV.SIG SCH ×2 (05:32→18:22)
--- NOTE | 2017-10-18 08:25 | P.PNFP ---
Subjective Interval history: Reports good night, Denies Co, No SOB Results - Labs Result diagrams: 10/16/17 06:34 10/14/17 10:30 Physical Exam Vital signs: Vital Signs 10/17/17 12:00 10/17/17 14:59 10/17/17 20:00 Temperature 97.7 F 97.5 F L 97.6 F Pulse Rate 101 H 100 H 89 Respiratory Rate 20 20 18 Blood Pressure 110/73 108/76 142/89 H Pulse Oximetry 95 95 96 10/18/17 00:00 Temperature 98.2 F Pulse Rate 92 H Respiratory Rate 18 Blood Pressure 154/89 H Pulse Oximetry 96 Intake & Output 10/17/17 10/18/17 10/18/17 18:59 06:59 18:59 Intake Total 610 / 610 240 / 240 Output Total 900 / 900 Balance -290 / -290 240 / 240 Weight 105 kg Intake: IV 50 / 50 Zosyn 3.375 GM Premix 50 ML @ 50 / 50 100 mls/hr IV.SIG Q12H SAM Rx#: [id number] Oral 560 / 560 240 / 240 Output: Urine 900 / 900 Other: # Urine Diapers 1 Date of Last Bowel Movement 10/14/17 10/14/17 - Constitutional no acute distress - Routine HEENT Exam ENT: Present: mucous membranes moist - Routine Neck Exam Present: supple - Routine Respiratory Exam Present: CTA bilaterally - Routine Cardiovascular Exam Present: S1, S2 - Routine Abdominal Exam Present: soft, normoactive bowel sounds - Routine Neurological Exam Present: alert - Routine Psychiatric Exam Present: cooperative Assessment and Plan - Assessment (1) UTI (urinary tract infection) Code(s): N39.0 - Urinary tract infection, site not specified Status: Acute Plan: Ecoli positive, started on Zosyn Sensitive to Zosyn will cont. (2) Sepsis Code(s): A41.9 - Sepsis, unspecified organism Status: Acute Plan: IVF, Zosyn. Now afebrile and more alert. (3) Afib Code(s): I48.91 - Unspecified atrial fibrillation Status: Acute Plan: Coumadin, rate controlled (4) HTN (hypertension) Code(s): I10 - Essential (primary) hypertension Status: Acute Plan: Cont home medications. Controlled thus far. (5) GERD (gastroesophageal reflux disease) Code(s): K21.9 - Gastro-esophageal reflux disease without esophagitis Status: Acute Plan: Protonix and monitor for GI sx. - Assessment and Plan Old cva, Hospice consult, decision pending snf/ home with Hospice 10/15/17- Transferred to medical floor.Vss voices he is feeling better. Cont with Zosyn. Hospice pending decision. Inr 1.4 on $ mg of Coumadin .Plt 97, yesterday, will repeat labs. Cont to monitor.Pt eval and treat. 10/16/17 - The RN tells me the family has gone to [facility] to see if OK for him to got to when ready for D/C. No word about Hospice consult thus far. Will cont to monitor and support. 10/17/17 - Discussed plan with pt's and case planner. Will consult case planner for eval for transfer to [facility] when medically cleared for D/C. Cont IV Zosyn for now. 10/18/17 Voices he is feeling well. VSS afebrile. labs pending this am. undecided about Hospice, voices that they are contemplating rehab. CM working on arrangements. Will need Zosyn until 10/23/17. DC to snf in am with Iv antibiotics. (1) UTI (urinary tract infection) Qualifiers: Urinary tract infection type: site unspecified Hematuria presence: without hematuria Qualified Code(s): N39.0 - Urinary tract infection, site not specified (2) Sepsis Qualifiers: Sepsis type: Escherichia coli Qualified Code(s): A41.51 - Sepsis due to Escherichia coli [E. coli]
[2017-10-18] MEDS: Docusate Sodium 100 MG Capsule PO SCH (09:02)
[2017-10-18] MEDS: Potassium Bicarbonate 25 MEQ Effervescent Tablet PO SCH (09:02)
[2017-10-18] MEDS: Ferrous Sulfate 325 MG Tablet PO SCH (09:03)
[2017-10-18] MEDS: Calcium/Vitamin D 250/125 MG Tablet PO SCH (09:04)
[2017-10-18] MEDS: Gabapentin 300 MG Capsule PO SCH ×2 (09:04→20:56)
[2017-10-18] MEDS: Furosemide 20 MG Tablet PO SCH (09:04)
[2017-10-18 11:03] LABS: Potassium 4.1 meq/L (3.5-5.1)
[2017-10-18 11:05] LABS: Calcium 8.2 mg/dL (8.5-10.1)
[2017-10-18 11:06] LABS: Carbon Dioxide 24.3 meq/L (21.0-32.0); Hematocrit 38.4 % (39.0-51.0); Hemoglobin 12.8 gm/dL (13.0-17.0); INR 1.8 Ratio; Mean Corpuscular HGB Conc 33.4 % (32.0-36.0); Mean Corpuscular Hemoglobin 30.9 pg (27.0-34.0); Mean Corpuscular Volume 92.3 fL (80.0-100.0); Mean Platelet Volume 9.9 fL (7.0-11.0); Platelet Count 120 th/mm3 (150-450); Prothrombin Time 18.1 sec (9.8-11.6); Red Blood Count 4.16 mil/mm3 (4.50-5.90); Red Cell Distribution Width 14.9 % (11.6-17.2); White Blood Count 7.9 th/mm3 (4.0-11.0)
--- NOTE | 2017-10-18 11:35 | XR ---
EXAM DATE: 10/18/2017 11:24 AM EDT AGE/SEX: 87 years / Male INDICATIONS: Cough CLINICAL DATA: This is the patient's subsequent encounter. Patient reports that signs and symptoms h ave been present for 1 day and indicates a pain score of 0/10. MEDICAL/SURGICAL HISTORY: None. None. COMPARISON: [facility], CHEST 1V SINGLE AP, 10/12/2017. . FINDINGS: The heart is enlarged. Minimal interstitial edema is present. Minimal parenchymal changes right base. There is no pleural effusion or pneumothorax Degenerative changes about the right shoulder. CONCLUSION: Mild congestive failure With minimal parenchymal changes right base, new from comparison study. Electronically signed by: Morales Pineda MD 10/18/2017 11:34 AM EDT
[2017-10-18] MEDS: Thyroid 60 MG Tablet PO SCH (14:51)
[2017-10-18] MEDS ORDERED: Bisacodyl 10 MG Supp RECTAL ONE (20:00)
[2017-10-18 20:44] VITALS: RESP 20
[2017-10-18] MEDS: Temazepam 15 MG Capsule PO PRN (21:08)
[2017-10-19] MEDS: Piperacil/Tazo 3.375 GM Premix 50 ML IV.SIG SCH (05:29)
[2017-10-19 07:23] VITALS: BP 125/73; PULSE 88; TEMP 96.9; O2SAT 94
[2017-10-19] MEDS: Calcium/Vitamin D 250/125 MG Tablet PO SCH (08:27)
[2017-10-19] MEDS: Docusate Sodium 100 MG Capsule PO SCH (08:27)
[2017-10-19] MEDS: Thyroid 60 MG Tablet PO SCH (08:28)
[2017-10-19] MEDS: Gabapentin 300 MG Capsule PO SCH (08:28)
[2017-10-19] MEDS: Furosemide 20 MG Tablet PO SCH (08:29)
[2017-10-19] MEDS: Ferrous Sulfate 325 MG Tablet PO SCH (08:29)
[2017-10-19] MEDS: Potassium Bicarbonate 25 MEQ Effervescent Tablet PO SCH (08:30)
--- NOTE | 2017-10-19 08:35 | P.DS ---
Date of admission: 10/12/17 17:01 Primary care physician: Romulo Ge DO Attending physician on discharge: Romulo Ge Anticipated date of discharge: 10/19/17 Brief History from admission: Late entry, seen on 10/13/17 The patient is an 87-year-old male with a past medical history of hypertension, atrial fibrillation, CVA, prostate cancer, history of pulmonary embolism, came to ED, with temperature of 101.4 and his laboratory data showed a creatinine of 1.2 and urinalysis was grossly positive for nitrate, leukocyte esterase, innumerable WBC. In the ED, the patient was given Zosyn and 2 liter boluses of normal saline. DS: Diagnosis - Discharge Diagnosis (1) UTI (urinary tract infection) Status: Acute (2) Sepsis Status: Acute (3) Afib Status: Acute (4) HTN (hypertension) Status: Acute (5) GERD (gastroesophageal reflux disease) Status: Acute DS: Summary Hospital Course: Admitte to ICU for Sepsis, early DIC Transferred to Medical floor on 10/14/17 Hospice consult on 10/13/17, Family undecided Treated with Iv Zosyn, for >100,000 Escherichia Coli, sensitive to Zosyn. BC negative CBC, monitored for early DIC. Plt on dc 120. Seen by ST chris velazquez evanastasia. Mechanical soft, [place] fluids - Time Spent with Patient Total time spent providing and/or coordinating discharge services: 30 Less than 30 minutes - Quality: AMI Clinical Trial Participant: No - Quality: VTE Deep Vein Thrombosis/Pulmonary Embolism Present on Admission: No Exam Vital signs: Vital Signs 10/18/17 12:00 10/18/17 16:00 10/18/17 19:40 Temperature 98.1 F 96.0 F L Pulse Rate 90 65 Respiratory Rate 18 18 Blood Pressure 121/85 137/81 Pulse Oximetry 95 97 95 10/18/17 20:00 10/19/17 00:00 10/19/17 07:22 Temperature 99.1 F 98.9 F 96.9 F L Pulse Rate 86 83 88 Respiratory Rate 20 20 20 Blood Pressure 125/78 122/76 125/73 Pulse Oximetry 95 95 94 L Intake & Output 10/18/17 10/19/17 10/19/17 18:59 06:59 18:59 Intake Total 50 / 50 525 / 525 Output Total 0 / 0 600 / 600 Balance 50 / 50 -75 / -75 Intake: IV 50 / 50 100 / 100 Zosyn 3.375 GM Premix 50 ML @ 50 / 50 100 / 100 100 mls/hr IV.SIG Q12H SAM Rx#: [id number] Oral 425 / 425 Output: Urine 600 / 600 Stool 0 / 0 Other: Date of Last Bowel Movement 10/15/17 # Bowel Movements 0 - Constitutional no acute distress, thin - Routine HEENT Exam Eye: Present: PERRL ENT: Present: mucous membranes moist - Routine Neck Exam Present: supple - Routine Respiratory Exam Present: diminished air movement - Routine Cardiovascular Exam Present: S1, S2 - Routine Abdominal Exam Present: soft - Routine Skin Exam Present: intact - Routine Neurological Exam Present: alert - Routine Psychiatric Exam Present: cooperative Results Procedures completed during hospitalization: n/a Labs on day of discharge: Labs from last 24 hours 10/18/17 10/18/17 10/18/17 10:33 10:33 10:33 WBC 7.9 RBC 4.16 L Hgb 12.8 L Hct 38.4 L MCV 92.3 MCH 30.9 MCHC 33.4 RDW 14.9 Plt Count 120 L MPV 9.9 PT 18.1 H INR 1.8 Sodium 136 Potassium 4.1 Chloride 103 Carbon Dioxide 24.3 Anion Gap 9 BUN 18 Creatinine 0.99 Estimated GFR 71 L Random Glucose 141 H Calcium 8.2 L - Impressions ITS Impressions Chest X-Ray 10/18/17 00:00 CONCLUSION: Mild congestive failure With minimal parenchymal changes right base, new from comparison study. Discharge Plan - Discharge Disposition Patient Disposition: Discharge to SNF - Discharge Condition Condition: Stable - Discharge Order Discharge Orders: Discharge Order (Routine); Ordered 10/19/17 Ordered By: Ritika Martinez - Discharge Details Anticipated Discharge Date: 10/19/17 Discharge Comment: Dc to snf, CBC, BMP, INR 10/20/17 - Physicians Team Primary Care Provider: Romulo Ge Attending Provider: Romulo Ge Other Providers: Dheeraj Loomis MD ; Vikas Dubose [facility]
[2017-10-19] MEDS ORDERED: Bisacodyl 10 MG Supp RECTAL SCH (09:00)
== END 2017-10-19 11:24 ==
LOC: PHED 14:33 → PHEDA 17:01 → PHEDH 22:43 → PHICU 10-13 08:11 → PH3 10-14 13:08
PROVIDERS: ADMIT Family Medicine; ATTEND Family Medicine